=== PATIENT | female | born 1950 | race Caucasian/White ===

== ENCOUNTER → 2021-11-18 | Outpatient (CLI) | payer MEDICARE | END | disposition home or self-care (01) | LOC: RAH 12:19 | PROVIDERS: ATTEND Internal Medicine | DX: I35.8 Other nonrheumatic aortic valve disorders (principal); M34.9 Systemic sclerosis, unspecified; I11.9 Hypertensive heart disease without heart failure | CPT/HCPCS: 93306; 93356 ==

== ENCOUNTER → 2023-09-18 | Outpatient (CLI) | payer MEDICARE | END | disposition home or self-care (01) | LOC: SHCH 07:30 | PROVIDERS: ATTEND Internal Medicine Cardiovascular Disease | DX: I87.2 Venous insufficiency (chronic) (peripheral) (principal) | CPT/HCPCS: 93970 ==

== ENCOUNTER → 2025-08-25 | Outpatient (CLI) | payer MEDICARE ==
[2025-08-25 22:02] VITALS: PULSE 90; RESP 12
[2025-08-25 22:30] VITALS: PULSE 83; RESP 12
[2025-08-25 23:02] VITALS: PULSE 82; RESP 14
[2025-08-25 23:30] VITALS: PULSE 81; RESP 14
[2025-08-26] VITALS (11 sets, daily range): PULSE 78–90; RESP 12–14
== END | disposition home or self-care (01) ==
LOC: SLP 20:50
PROVIDERS: ATTEND Internal Medicine Nephrology
DX: G47.33 Obstructive sleep apnea (adult) (pediatric) (principal); R06.83 Snoring; G47.00 Insomnia, unspecified; R53.83 Other fatigue; I10 Essential (primary) hypertension; F41.9 Anxiety disorder, unspecified
CPT/HCPCS: 95810

== ENCOUNTER → 2025-09-11 | Outpatient (CLI) | payer MEDICARE ==
[2025-09-11] MEDS: REGADENOSON 0.4 MG/5 ML PF SYG IVP ONE (11:02)
--- NOTE | 2025-09-11 16:16 | HMCSR ---
APPROVED REPORT Height: 5 ft 5in Weight: 154 lbs TEST INDICATIONS Angina Pectoris The imaging protocol used to acquire images was Rest Tc-99m/stress Tc-99m 1 day Consent: The procedure was explained and understood by the patient. Informerd consent was witnessed Tawnya Fam RN First, low dose rest was performed then high dose stress. RESTING DATA: The resting ekg shows: NSR Rest SPECT myocardial perfusion imaging was performed in supine position minutes following the intra venous injection of 11 mCi of Tc-99 Sestamibi. Time of rest injection: 08:55: Date: 09/11/2025 PHARMACOLOGIC STRESS: Pharmacologic stress test was performed by injecting regadenoson 0.4 mg IV push followed by the intra venous injection of 29.5 mCi of Tc-99 Sestamibi. Time of stress injection: 11:05: Date: 09/11/2025 Heart Rate at time of stress injection: 64 bpm. Gated Stress SPECT was performed 60 minutes after stress injection. The images were gated to evaluate regional wall motion and calculate left ventricular ejection fracti on. STRESS DETAILS Reason for Termination: Infusion complete Stress Symptoms: No chest pain or symptoms Max HR Achieved: 90 bpm % of APMHR Achieved: 72 Max Blood Pressure: 141/70 mmHg Stress ECG: NSR Study quality was excellent. Lung uptake was Normal. Artifact: breast and diaphragmatic artifact LEFT VENTRICLE The left ventricular ejection fraction was calculated to be 82%.TID = 0.87. LV PERFUSION The stress images show normal perfusion. LV PERFUSION Stress Perfusion Normal IMPRESSION Normal pharmacologic nuclear stress test. Global LV Function: Normal Stress ECG Summary: Normal LV Perfusion Summary: Normal Conclusion Normal pharmacologic nuclear stress test. Global LV Function: Normal Stress ECG Summary: Normal Low risk scan
== END | disposition home or self-care (01) ==
LOC: RAH 08:31
PROVIDERS: ATTEND Internal Medicine Cardiovascular Disease
DX: I20.9 Angina pectoris, unspecified (principal)
CPT/HCPCS: 78452; 93017; J2785; A9500 ×2